=== PATIENT | male | born 1955 | race African-American/Black ===

== ENCOUNTER 2017-08-13 09:49 | Emergency (ER) | payer MEDICAID, OTHER ==
[~2017-08-13] VITALS: Ht 188 cm; Wt 86.2 kg
[2017-08-13 10:04] VITALS: BP 102/70
[2017-08-13] MEDS ORDERED: Methocarbamol 750mg tab ORAL ONE (10:15)
[2017-08-13] MEDS ORDERED: ACETAMINOPHEN500 M3 ORAL (10:20)
[2017-08-13] MEDS ORDERED: ROBAXIN-750750 MG PO (10:20)
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
[2017-08-13 11:23] VITALS: BP 105/68
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
== END 2017-08-13 11:15 | disposition home or self-care (01) ==
LOC: EMR 10:39
DX: S50.01XA Contusion of right elbow, initial encounter (principal); M54.5 Low back pain; V43.52XA Car driver injured in collision with other type car in traffic accident, initial encounter; Y92.411 Interstate highway as the place of occurrence of the external cause
CPT/HCPCS: 99284

== ENCOUNTER 2019-03-29 14:02 | Emergency (ER) | payer SELFPAY ==
[~2019-03-29] VITALS: Ht 188 cm; Wt 80.7 kg
[~2019-03-29 14:02] MED LIST: ACETAMINOPHEN500 M3 ORAL; ROBAXIN-750750 MG PO
[2019-03-29 14:25] VITALS: BP 117/80
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
[2019-03-29] MEDS ORDERED: Methocarbamol 500mg tab ORAL ONE (14:30)
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
[2019-03-29] MEDS ORDERED: IBUPROFEN600 MG ORAL (15:05)
[2019-03-29] MEDS ORDERED: ROBAXIN-500MG ORAL (15:05)
[2019-03-29] MEDS ORDERED: LIDODERM700 M1 TOPIC (15:05)
--- NOTE | 2019-03-29 15:13 | Diagnostic Imaging Report ---
Indication: Neck Pain Findings: 3 views of the cervical spine were obtained. There is straightening of the cervical spine. Generalized osteopenia demonstrated. There is no fracture or soft tissue swelling identified. There is multilevel narrowing of intervertebral discs. There are multilevel endplate osteophytes present as well as a hypertrophied facets. The open-mouth view is negative for malalignment or fracture. IMPRESSION: No acute injury appreciated. Moderate multilevel degenerative disease
--- NOTE | 2019-03-29 15:14 | Diagnostic Imaging Report ---
Indication: Right shoulder pain COMPARISON: None Findings: 3 views of the right shoulder were obtained. No acute fractures, malalignment, erosions or periostitis are identified. Bones are osteopenic. Soft tissues are unremarkable. Impression: Negative for acute injury
--- NOTE | 2019-03-29 15:30 | NUR ---
ER DISCHARGE NOTE: Patient is cleared to be discharged per ERMD, pt is aox4, on room air, with stable vital signs. pt was given dc and prescription instructions, pt was able to verbalize understanding, pt is able to ambulate with steady gait. pt took all belongings.
[2019-03-29 15:55] VITALS: BP 117/80
== END 2019-03-29 15:30 | disposition home or self-care (01) ==
LOC: EMR 15:25
DX: S13.4XXA Sprain of ligaments of cervical spine, initial encounter (principal); S43.401A Unspecified sprain of right shoulder joint, initial encounter; V43.52XA Car driver injured in collision with other type car in traffic accident, initial encounter; Y92.410 Unspecified street and highway as the place of occurrence of the external cause
CPT/HCPCS: 72040; 99284